=== PATIENT | male | born 1975 | race Caucasian/White ===

== ENCOUNTER 2020-03-26 03:42 | Emergency (ER) | payer SELFPAY ==
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
[2020-03-26] MEDS ORDERED: Diphtheria,Pertussis(Acell),Tetanus Vaccine 0.5 ML SDV IM ONE (04:16)
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
[2020-03-26] MEDS ORDERED: Lidocaine 1% with EPINEPHrine 1:100,000 50 ML MDV INFILT STA (04:41)
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
[2020-03-26] MEDS ORDERED: Iopamidol 612 MG/ML 150 ML Bottle IV PRN (06:12)
[2020-03-26] MEDS ORDERED: Sodium Chloride 0.9% 10 ML Syringe FLUSH ONE (06:12)
[2020-03-26] MEDS ORDERED: Sodium Chloride 0.9% 86 ML IV SCH (06:15)
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
== END 2020-03-26 08:34 | disposition home or self-care (01) ==
LOC: JP.ED 03:42
DX: S42.022A Displaced fracture of shaft of left clavicle, initial encounter for closed fracture (principal); S22.41XA Multiple fractures of ribs, right side, initial encounter for closed fracture; S01.81XA Laceration without foreign body of other part of head, initial encounter; S70.11XA Contusion of right thigh, initial encounter; F10.920 Alcohol use, unspecified with intoxication, uncomplicated; M54.5 Low back pain; Z23 Encounter for immunization; V58.5XXA Driver of pick-up truck or van injured in noncollision transport accident in traffic accident, initial encounter
CPT/HCPCS: 12011; 36415; 71045; 71101; 71260; 72128; 72131; 74177; 80053; 80307; 85027; 90471; 90715; 99284; J7050; Q9967

== ENCOUNTER 2020-04-19 10:07 | Day surgery (SDC) | payer OTHER ==
[2020-04-19] MEDS ORDERED: Nozin Nasal Sanitizer NASBOTH ONE (10:45)
[2020-04-19] MEDS ORDERED: ceFAZolin 1 GM in Premix Bag 1 BAG IV ONE (10:45)
[2020-04-19] MEDS ORDERED: Lactated Ringers 1,000 ML IV SCH (10:45)
[2020-04-19] MEDS ORDERED: Succinylcholine 200 MG/10 ML MDV ONE (12:35)
[2020-04-19] MEDS ORDERED: Ondansetron 4 MG/2 ML SDV ONE (12:35)
[2020-04-19] MEDS ORDERED: Glycopyrrolate 0.2 MG/ML 5 ML MDV ONE (12:35)
[2020-04-19] MEDS ORDERED: fentaNYL 250 MCG/5 ML SDV ONE (12:35)
[2020-04-19] MEDS ORDERED: Neostigmine Methylsulfate 1 MG/ML 5 ML Syringe ONE (12:35)
[2020-04-19] MEDS ORDERED: Rocuronium 50 MG/5 ML Vial ONE (12:35)
[2020-04-19] MEDS ORDERED: Propofol 200 MG/20 ML SDV ONE (12:35)
[2020-04-19] MEDS ORDERED: Dexamethasone 4 MG/ML SDV ONE (12:35)
[2020-04-19] MEDS ORDERED: Bupivacaine 0.5% 50 ML MDV ONE (14:26)
[2020-04-19] MEDS ORDERED: fentaNYL 100 MCG/2 ML SDV ONE (16:46)
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
== END 2020-04-19 18:30 | disposition home or self-care (01) ==
LOC: JP.SDS 10:07
PROVIDERS: ATTEND Specialist
DX: S42.022A Displaced fracture of shaft of left clavicle, initial encounter for closed fracture (principal); E66.9 Obesity, unspecified; Z68.30 Body mass index [BMI] 30.0-30.9, adult; V89.2XXA Person injured in unspecified motor-vehicle accident, traffic, initial encounter
CPT/HCPCS: 23515; 36415; 80053; 85027; A9270; C1713; J0330; J0690; J1100; J2405; J2704; J2710; J3010; J3490; J7120